=== PATIENT | male | born 1930 | race Caucasian/White ===

== ENCOUNTER 2016-12-08 19:41 | Emergency (ER) | payer OTHER ==
[~2016-12-08] VITALS: Ht 177.8 cm; Wt 101.1 kg
[~2016-12-08 19:41] MED LIST: ACET-1256 PO; ASMANEX; ASPEC81; CMD5; CRDCD120 PO; CRG125 PO; CTP1 PO; CZR50 PO; FRRS300 PO; FRS/40; MULT-506; SIMV80TA2 PO; SPIR25TA PO; TIOTCAP
[2016-12-08 19:45] VITALS: TEMP 36.5; Ht 177.8 cm; Wt 101.1 kg
[2016-12-08] MEDS ORDERED: CALC0.5C17 PO (21:02)
[2016-12-08] MEDS ORDERED: ASPI81TA28 PO (21:02)
[2016-12-08] MEDS ORDERED: CLON0.1T12 PO (21:02)
[2016-12-08] MEDS ORDERED: LOSA50TA6 PO (21:02)
[2016-12-08] MEDS ORDERED: WARF5TAB90 PO (21:02)
[2016-12-08] MEDS ORDERED: SPIR25TA PO (21:02)
[2016-12-08] MEDS ORDERED: CRS/10 PO (21:02)
[2016-12-08] MEDS ORDERED: BUME1TAB PO (21:02)
[2016-12-08] MEDS ORDERED: CMD/25 PO (21:02)
[2016-12-08 21:38] VITALS: BP 115/76; PULSE 88; O2SAT 98
--- NOTE | 2016-12-08 22:32 | EMERGENCY ROOM VISIT NOTE ---
History Report prepared by Annamaria: Swetha Whipple Under the Supervision of: Dr. Franco Bates M.D. First contact with patient: 20:59 Chief Complaint: FALL Stated Complaint: FALL/L-EYE HEMATOMA History of Present Illness The patient is an 86 year old male who presents to the Emergency Room with complaints of a fall SHIFT [employer]. The patient presents to the ED by EMS. He was trying to get to his daughter's car when he fell. He lost his balance and needed something to hold onto. He fell onto his face. He denies any other injury. He is on Coumadin. His last INR was 2.2. He denies any pain with moving his eye, abdominal pain, or hip pain. Source of History: patient, family Onset: SHIFT [employer]ES[employer] Position: other (global) Quality: other (fall) Timing: other (episodic) Associated Symptoms: No abdominal pain Note: Pt denies hip pain. Review of Systems See HPI for pertinent positives & negatives. A total of 10 systems reviewed and were otherwise negative. Past Medical & Surgical Medical Problems: (1) Atrial fibrillation Family History Noncontributory secondary to age. Social History Smoking Status: Never Smoker Marital Status: Occupation Status: retired Current/Historical Medications Scheduled Acetaminophen (Tylenol), 1,000 MG PO Q6H PRN Aspirin (Aspirin Ec), 81 MG PO DAILY Bumetanide (Bumex), 1 MG PO UD Calcitriol (Calcitriol), 1 CAP PO DAILY Clonidine Hcl (Catapres), 1 TAB PO DAILY Losartan Potassium (Cozaar), 50 MG PO DAILY Rosuvastatin Calcium (Crestor), 10 MG PO DAILY Spironolactone (Aldactone), 25 MG PO DAILY Warfarin Sod (Coumadin), 2.5 MG PO 3XWK Warfarin Sodium (Coumadin), 5 MG PO 4XWK Miscellaneous Medications Multivitamin (Multivitamin) Allergies Coded Allergies: Penicillins (Verified Allergy, Severe, RESP DISTRESS, RASH, 12/08/16) RESPIRATORY DIFFICULTY AND RASH Hydralazine (Verified Allergy, Mild, 12/08/16) Sulfamethoxazole w/Trimethoprim (Verified Allergy, Unknown, UNKNOWN, ) Physical Exam Vital Signs Date Time Temp Pulse Resp B/P (MAP) Pulse Ox O2 Delivery O2 Flow Rate FiO2 12/08/16 21:38 88 16 115/76 98 12/08/16 19:45 36.5 91 18 117/69 94 Room Air Physical Exam GENERAL: Patient is a healthy-appearing well-nourished male HEAD: Severe swelling to the left eye orbit. EYES: Ocular movements intact pupils equal and react to light, no pain with eye movement. OROPHARYNX mucous membranes are moist no exudates present no erythema or edema present NECK: Supple no nuchal rigidity CHEST: Good equal expansion LUNGS: Clear and equal to auscultation CARDIAC: Normal S1 and S2 ABDOMEN: Soft nontender no guarding BACK: No CVA tenderness EXTREMITIES: No pain upon palpation normal muscle strength in all groups no clubbing cyanosis or edema NEURO: Patient is following commands and answering questions appropriately. Alert and oriented x3 Cranial Nerves 2-12 grossly intact Medical Decision & Procedures ED Course 2101: Past medical records reviewed. The patient was evaluated in room B9. A complete history and physical examination was performed. I strongly recommended that he get lab work and a CT scan of his head, but he refused and would like to go home. He will be discharged home. Medical Decision Differential diagnosis: Etiologies such as fracture, dislocation, intra-abdominal, pneumothorax, intrathoracic , intracranial, neurologic, as well as other traumatic pathologies were entertained. This is an 86-year-old male who is brought to the emergency department by his daughter over concerns that the patient is falling at home. I strongly recommended to the patient he receive a CAT scan of the head and face as he is on Coumadin. In addition I also recommended we check his Coumadin level however the patient is adamantly refusing CAT scans as well as laboratory work. He wishes to be discharged home. His daughter threatened to take him back to the emergency department if he refuses to use his walker at home Head Trauma GCS Score: 15 Medication Reconcilliation Current Medication List: was personally reviewed by me Blood Pressure Screening Patient's blood pressure: Normal blood pressure Blood pressure disposition: Did not require urgent referral Impression Primary Impression: Black eye of left side Additional Impression: Fall Scribe Attestation The scribe's documentation has been prepared under my direction and personally reviewed by me in its entirety. I confirm that the note above accurately reflects all work, treatment, procedures, and medical decision making performed by me. Departure Information Dispostion Home / Self-Care Referrals Sulman,Kevin A., D.O. Forms HOME CARE DOCUMENTATION FORM, IMPORTANT VISIT INFORMATION Patient Instructions My [facility], ED Contusion Eye, ED Head Injury Closed Additional Instructions You were found to have an elevated blood pressure today (>120 sytolic or >90 diastolic). Per medicare guidelines, you need to follow up with this blood pressure screening with your Primary Care Physician (PCP). For a new PCP call [phone]. You have been examined and treated today on an emergency basis only. This is not a substitute for, or an effort to provide, complete comprehensive medical care. It is impossible to recognize and treat all injuries or illnesses in a single emergency department visit. It is therefore important that you follow up closely with Dr Lopez. Call as soon as possible for an appointment. Thank you for your time and consideration. I look forward to speaking with you again soon. Please don't hesitate to call us if you have any questions. Problem Qualifiers Additional Impression: Fall Encounter type: initial encounter Qualified Codes: W19.XXXA - Unspecified fall, initial encounter
== END 2016-12-08 21:39 | disposition home or self-care (01) ==
LOC: EDBD 19:41 → C.EDB 19:42
DX: S00.12XA Contusion of left eyelid and periocular area, initial encounter (principal); V48.4XXA Person boarding or alighting a car injured in noncollision transport accident, initial encounter; Z79.01 Long term (current) use of anticoagulants; I48.91 Unspecified atrial fibrillation; Z79.82 Long term (current) use of aspirin; Z79.899 Other long term (current) drug therapy

== ENCOUNTER 2016-12-13 10:22 | Emergency (ER) | payer OTHER ==
[~2016-12-13] VITALS: Ht 177.8 cm; Wt 100.0 kg
[~2016-12-13 10:22] MED LIST changes: -ASMANEX; -ASPEC81; +ASPI81TA28 PO; +BUME1TAB PO; +CALC0.5C17 PO; +CLON0.1T12 PO; +CMD/25 PO; -CMD5; -CRDCD120 PO; -CRG125 PO; +CRS/10 PO; -CTP1 PO; -CZR50 PO; -FRRS300 PO; -FRS/40; +LOSA50TA6 PO; -SIMV80TA2 PO; -TIOTCAP; +WARF5TAB90 PO
[2016-12-13 10:43] VITALS: TEMP 36.5; Ht 177.8 cm; Wt 100.0 kg
--- NOTE | 2016-12-13 11:37 | EMERGENCY ROOM VISIT NOTE ---
History Report prepared by Annamaria: Stanley Ashley Under the Supervision of: Dr. Nitin Winston M.D. First contact with patient: 10:58 Chief Complaint: HEAD INJURY (MINOR) Stated Complaint: HEAD INJURY, LUMP FOLLOWING A FALL History of Present Illness The patient is an 86 year old white male with a past medical history of A-fib, cardiac ablation, and HTN who presents to the ED with a cc of head injury occurring five days ago. Positive swelling and bruising. Negative LOC. He states that he was walking and fell onto the concrete. The patient is currently on Coumadin. Source of History: patient Onset: five days ago Position: head Quality: other (injury after fall) Timing: other (sudden) Note: Associated symptoms: swelling and bruising Review of Systems See HPI for pertinent positives and negatives. A total of ten systems were reviewed and were otherwise negative. Past Medical & Surgical Medical Problems: (1) Atrial fibrillation Social History Smoking Status: Former Smoker Marital Status: Occupation Status: retired Current/Historical Medications Scheduled Acetaminophen (Tylenol), 1,000 MG PO Q6H PRN Aspirin (Aspirin Ec), 81 MG PO DAILY Bumetanide (Bumex), 1 MG PO UD Calcitriol (Calcitriol), 1 CAP PO DAILY Clonidine Hcl (Catapres), 1 TAB PO DAILY Losartan Potassium (Cozaar), 50 MG PO DAILY Rosuvastatin Calcium (Crestor), 10 MG PO DAILY Spironolactone (Aldactone), 25 MG PO DAILY Warfarin Sod (Coumadin), 2.5 MG PO 3XWK Warfarin Sodium (Coumadin), 5 MG PO 4XWK Allergies Coded Allergies: Penicillins (Verified Allergy, Severe, RESP DISTRESS, RASH, 12/13/16) RESPIRATORY DIFFICULTY AND RASH Hydralazine (Verified Allergy, Mild, 12/13/16) Sulfamethoxazole w/Trimethoprim (Verified Allergy, Unknown, UNKNOWN, ) Physical Exam Vital Signs Date Time Temp Pulse Resp B/P (MAP) Pulse Ox O2 Delivery O2 Flow Rate FiO2 12/13/16 14:00 92 17 138/91 94 12/13/16 13:52 92 17 138/91 94 12/13/16 12:30 69 12/13/16 12:22 94 Room Air 12/13/16 12:22 75 18 144/85 94 Room Air 12/13/16 10:43 36.5 87 18 131/78 92 Room Air Physical Exam GENERAL: Awake, alert, well-appearing, NAD HENT: Significant hematoma and ecchymosis to the left forehead. Ecchymosis extends to the left face and anterior neck. Normocephalic. EYES: Normal conjunctiva. Sclera non-icteric. NECK: Supple. No nuchal rigidity. FROM. RESPIRATORY: CTAB, no rhonchi, wheezing, crackles CARDIAC: RRR, no MRG ABDOMEN: Soft, NTND, BS+ MSK: No chest wall TTP, no LE edema NEURO: GCS 15, CN 2-12 intact, moves all 4s on command. Good finger to nose. No dysmetria. No neuro deficits. SKIN: There is left forearm bruising. No rash or jaundice noted. Medical Decision & Procedures ER Provider Diagnostic Interpretation: Radiology results as stated below per my review and radiologist interpretation: CT SCAN OF THE BRAIN WITHOUT IV CONTRAST CLINICAL HISTORY: Fall. Hematoma. COMPARISON STUDY: No priors. TECHNIQUE: Unenhanced axial CT scan of the brain is performed from the vertex to the skull base. CT DOSE: 955.27 mGy.cm FINDINGS: Brain parenchyma: There are age-related involutional changes noting mild subcortical and periventricular microangiopathic change. 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 There is no hemorrhage, mass effect, or evidence of acute territorial ischemia by CT criteria. Chen-white matter is preserved. No extra-axial fluid collection is seen. Ventricles, sulci, cisterns: Prominent secondary to involutional change. Cavum septum pellucidum is incidentally noted. Intracranial vasculature: There is atherosclerotic calcification of the cavernous carotid arteries. Calvarium: The skeletal structures are osteopenic. No depressed calvarial fracture is seen. Soft tissues: There is a left frontal scalp hematoma. Sinuses and mastoids: The visualized paranasal sinuses are clear. The mastoid air cells are well pneumatized. Orbits: The bony orbits are grossly intact. There are bilateral ocular lens implants. IMPRESSION: 1. Senescent changes as above with no hemorrhage, mass effect, or evidence of acute territorial ischemia by CT criteria. 2. Left frontal scalp hematoma. No depressed calvarial fracture is seen. Electronically signed by: Reynold Chamorro M.D. 12/13/2016 12:23 PM Dictated Date/Time: 12/13/2016 12:19 PM SINGLE VIEW CHEST CLINICAL HISTORY: Atypical chest pain. FINDINGS: An AP, portable, upright chest radiograph is compared to study dated 07/28/2011. The examination is degraded by portable technique and patient rotation. The heart is enlarged and there is atherosclerotic calcification of the thoracic aorta. The pulmonary vasculature is noncongested. Chronic interstitial thickening is similar to previous. There is a trace left pleural effusion and bibasilar airspace opacities. No pneumothorax is seen. The skeletal structures are osteopenic. The bony thorax is grossly intact. IMPRESSION: 1. Cardiomegaly without radiographic evidence of congestive failure. 2. Trace left pleural effusion. 3. Bibasilar airspace opacities are identified and likely represent atelectasis. Correlate clinically for evidence of a mild infectious/inflammatory pneumonitis. Electronically signed by: Reynold Chamorro M.D. 12/13/2016 11:47 AM Dictated Date/Time: 12/13/2016 11:45 AM Laboratory Results 12/13/16 11:55 Red Blood Count 4.12, Mean Corpuscular Volume 94.4, Mean Corpuscular Hemoglobin 31.1, Mean Corpuscular Hemoglobin Concent 32.9, Mean Platelet Volume 11.1, Neutrophils (%) (Auto) 68.3, Lymphocytes (%) (Auto) 22.9, Monocytes (%) (Auto) 6.2, Eosinophils (%) (Auto) 2.1, Basophils (%) (Auto) 0.4, Neutrophils # (Auto) 4.97, Lymphocytes # (Auto) 1.67, Monocytes # (Auto) 0.45, Eosinophils # (Auto) 0.15, Basophils # (Auto) 0.03 12/13/16 11:55 Test 12/13/16 11:55 White Blood Count 7.28 K/uL (4.8-10.8) Red Blood Count 4.12 M/uL (4.7-6.1) Hemoglobin 12.8 g/dL (14.0-18.0) Hematocrit 38.9 % (42-52) Mean Corpuscular Volume 94.4 fL (80-100) Mean Corpuscular Hemoglobin 31.1 pg (25-34) Mean Corpuscular Hemoglobin Concent 32.9 g/dl (32-36) Platelet Count 153 K/uL (130-400) Mean Platelet Volume 11.1 fL (7.4-10.4) Neutrophils (%) (Auto) 68.3 % Lymphocytes (%) (Auto) 22.9 % Monocytes (%) (Auto) 6.2 % Eosinophils (%) (Auto) 2.1 % Basophils (%) (Auto) 0.4 % Neutrophils # (Auto) 4.97 K/uL (1.4-6.5) Lymphocytes # (Auto) 1.67 K/uL (1.2-3.4) Monocytes # (Auto) 0.45 K/uL (0.11-0.59) Eosinophils # (Auto) 0.15 K/uL (0-0.5) Basophils # (Auto) 0.03 K/uL (0-0.2) RDW Standard Deviation 50.1 fL (36.4-46.3) RDW Coefficient of Variation 14.5 % (11.5-14.5) Immature Granulocyte % (Auto) 0.1 % Immature Granulocyte # (Auto) 0.01 K/uL (0.00-0.02) Prothrombin Time 43.2 SECONDS (9.0-12.0) Prothromb Time International Ratio 3.8 (0.9-1.1) Activated Partial Thromboplast Time 42.1 SECONDS (21.0-31.0) Partial Thromboplastin Ratio 1.6 Anion Gap 6.0 mmol/L (3-11) Est Creatinine Clear Calc Drug Dose 46.6 ml/min Estimated GFR () 53.1 Estimated GFR (Non- 45.8 BUN/Creatinine Ratio 16.0 (10-20) Calcium Level 9.2 mg/dl (8.5-10.1) Laboratory results reviewed by me ECG Indication: other (head injury) Rate (beats per minute): 67 Rhythm: atrial fibrillation Findings: other (Normal QRS, normal intervals, no STS changes or TWI) ED Course 1058: The patient was evaluated in room A4. A complete history and physical exam was performed. 1340: I reevaluated the patient. Discussed results and discharge instructions: He verbalized understanding and agreement. The patient is ready for discharge. Medical Decision The patient is an 86 year old white male with a past medical history of A-fib, cardiac ablation, and HTN who presents to the ED with a cc of head injury occurring five days ago. Positive swelling and bruising. Negative LOC. He states that he was walking and fell onto the concrete. The patient is currently on Coumadin. Triage Nursing notes reviewed. The patient's presentation and history were concerning for ICH, hematoma, and coagulopathy. Patient was seen and evaluated at the bedside. Patient was fairly well- appearing although did have a fairly large left frontal hematoma and some ecchymosis to left side of the face. Patient had a fall prior and was discharged home. Patient does take Coumadin for atrial fibrillation. Patient did have blood work as well as CT the head that was completed. Patient's CT brain negative acute for fracture ICH. Patient was told that his INR was mildly elevated. Case management did call his Coumadin clinic to arrange a recheck of his INR. Given the fact patient has no acute bleeding no reversal was initiated. I did tell the patient to not take his dose this evening. Patient did have an Mu wrap placed over the frontal hematoma. Patient was given strict follow-up, discharge, and return precautions. Patient agreed with plan of care patient was safely discharged home. Medication Reconcilliation Current Medication List: was personally reviewed by me Blood Pressure Screening Patient's blood pressure: Elevated blood pressure Blood pressure disposition: Elevated BP felt to be situational Impression Primary Impression: Hematoma of frontal scalp Additional Impression: Elevated INR Scribe Attestation The scribe's documentation has been prepared under my direction and personally reviewed by me in its entirety. I confirm that the note above accurately reflects all work, treatment, procedures, and medical decision making performed by me. Departure Information Dispostion Home / Self-Care Referrals No Doctor, Assigned (PCP) Forms HOME CARE DOCUMENTATION FORM, IMPORTANT VISIT INFORMATION Patient Instructions Atrial Fibrillation [facility] Additional Instructions Please return to the emergency department if you have worsening or recurrent symptoms not amenable to at-home treatment. Please call for a follow-up appointment with her primary care physician. Please take your medications as prescribed. If you have other concerns and/or complaints please feel free to also call your primary care physician's office or return the ED for further evaluation, management, and treatment. Please avoid your next dose of coumadin on 12/13/16. The clinic will call you for a follow up appointment. You have been examined and treated today on an emergency basis only. This is not a substitute for, or an effort to provide, complete comprehensive medical care. It is impossible to recognize and treat all injuries or illnesses in a single emergency department visit. It is therefore important that you follow up closely with [facility]. Call as soon as possible for an appointment. Thank you for your time and consideration. I look forward to speaking with you again soon. Please don't hesitate to call us if you have any questions. Problem Qualifiers Primary Impression: Hematoma of frontal scalp Encounter type: subsequent encounter Qualified Codes: S00.03XD - Contusion of scalp, subsequent encounter
--- NOTE | 2016-12-13 11:48 | DIAGNOSTIC IMAGING REPORT ---
SINGLE VIEW CHEST CLINICAL HISTORY: Atypical chest pain. FINDINGS: An AP, portable, upright chest radiograph is compared to study dated 07/28/2011. The examination is degraded by portable technique and patient rotation. The heart is enlarged and there is atherosclerotic calcification of the thoracic aorta. The pulmonary vasculature is noncongested. Chronic interstitial thickening is similar to previous. There is a trace left pleural effusion and bibasilar airspace opacities. No pneumothorax is seen. The skeletal structures are osteopenic. The bony thorax is grossly intact. IMPRESSION: 1. Cardiomegaly without radiographic evidence of congestive failure. 2. Trace left pleural effusion. 3. Bibasilar airspace opacities are identified and likely represent atelectasis. Correlate clinically for evidence of a mild infectious/inflammatory pneumonitis. Electronically signed by: Reynold Chamorro M.D. 12/13/2016 11:47 AM Dictated Date/Time: 12/13/2016 11:45 AM
[2016-12-13 12:22] VITALS: O2SAT 94
--- NOTE | 2016-12-13 12:24 | DIAGNOSTIC IMAGING REPORT ---
CT SCAN OF THE BRAIN WITHOUT IV CONTRAST CLINICAL HISTORY: Fall. Hematoma. COMPARISON STUDY: No priors. TECHNIQUE: Unenhanced axial CT scan of the brain is performed from the vertex to the skull base. CT DOSE: 955.27 mGy.cm FINDINGS: Brain parenchyma: There are age-related involutional changes noting mild subcortical and periventricular microangiopathic change. 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 There is no hemorrhage, mass effect, or evidence of acute territorial ischemia by CT criteria. Chen-white matter is preserved. No extra-axial fluid collection is seen. Ventricles, sulci, cisterns: Prominent secondary to involutional change. Cavum septum pellucidum is incidentally noted. Intracranial vasculature: There is atherosclerotic calcification of the cavernous carotid arteries. Calvarium: The skeletal structures are osteopenic. No depressed calvarial fracture is seen. Soft tissues: There is a left frontal scalp hematoma. Sinuses and mastoids: The visualized paranasal sinuses are clear. The mastoid air cells are well pneumatized. Orbits: The bony orbits are grossly intact. There are bilateral ocular lens implants. IMPRESSION: 1. Senescent changes as above with no hemorrhage, mass effect, or evidence of acute territorial ischemia by CT criteria. 2. Left frontal scalp hematoma. No depressed calvarial fracture is seen. Electronically signed by: Reynold Chamorro M.D. 12/13/2016 12:23 PM Dictated Date/Time: 12/13/2016 12:19 PM
[2016-12-13 12:32] LABS: BASO % 0.4 %; BASO ABS # 0.03 K/uL (0-0.2); COMPLETE YES; EOS % 2.1 %; HEMATOCRIT 38.9 % (42-52); IG% 0.1 %; LYMPH % 22.9 %; LYMPH ABS # 1.67 K/uL (1.2-3.4); MEAN CELL VOLUME 94.4 fL (80-100); MEAN CORPUSCULAR HEMOGLOBIN 31.1 pg (25-34); MEAN CORPUSCULAR HGB CONC 32.9 g/dl (32-36); MEAN PLATELET VOLUME 11.1 fL (7.4-10.4); MONO % 6.2 %; NEUT % 68.3 %; PLATELET COUNT 153 K/uL (130-400); RED BLOOD COUNT 4.12 M/uL (4.7-6.1); WHITE BLOOD COUNT 7.28 K/uL (4.8-10.8)
[2016-12-13 12:48] LABS: PARTIAL THROMBOPLASTIN RATIO 1.6; PROTHROMBIN TIME (PATIENT) 43.2 SECONDS (9.0-12.0)
[2016-12-13 12:49] LABS: INR 3.8 (0.9-1.1)
[2016-12-13 12:54] LABS: CALCIUM 9.2 mg/dl (8.5-10.1); CREATININE 1.4 mg/dl (0.60-1.40); POTASSIUM 4.7 mmol/L (3.5-5.1)
[2016-12-13 14:00] VITALS: BP 138/91; PULSE 92; O2SAT 94
== END 2016-12-13 14:00 | disposition home or self-care (01) ==
LOC: C.EDB 10:24 → C.EDA 14:00
DX: S00.03XD Contusion of scalp, subsequent encounter (principal); X58.XXXA Exposure to other specified factors, initial encounter; I48.91 Unspecified atrial fibrillation; I10 Essential (primary) hypertension; Z79.01 Long term (current) use of anticoagulants; Z79.899 Other long term (current) drug therapy